=== PATIENT | male | born 1950 | race Caucasian/White ===

== ENCOUNTER 2016-06-22 11:28 | Inpatient (IN) | payer OTHER ==
[2016-06-22] VITALS (36 sets, daily range): BP systolic 95–174; RESP 10–24; TEMP 97.7–98.3; Ht 190.5 cm; Wt 108.9 kg
[~2016-06-22] VITALS: Ht 190.5 cm; Wt 108.9 kg
[2016-06-22] MEDS ORDERED: Atorvastatin 40 MG TAB PO ONE (13:40)
[2016-06-22] MEDS ORDERED: OXYCODONE/APAP 5/325 TAB PO PRN (13:55)
[2016-06-22] MEDS ORDERED: LIDOCAINE 2% 20 ML SUBQ ONE (13:55)
[2016-06-22] MEDS ORDERED: MORPHINE 2 MG/ML SYR IV PRN (13:55)
[2016-06-22] MEDS ORDERED: MORPHINE 2 MG/ML SYR IV ONE (13:55)
[2016-06-22] MEDS ORDERED: TEMAZEPAM 7.5 MG CAP PO PRN (13:55)
[2016-06-22] MEDS ORDERED: MIDAZOLAM 2 MG/2 ML INJ IV ONE (13:55)
[2016-06-22] MEDS ORDERED: TRAMADOL 50 MG TAB PO PRN (13:55)
[2016-06-22] MEDS ORDERED: TEMAZEPAM 15 MG CAP PO PRN (13:55)
[2016-06-22] MEDS ORDERED: NITROGLYCERIN 50 MG/250 ML 250 ML IV PRN (13:55)
[2016-06-22] MEDS ORDERED: SALINE FLUSH 10 ML FLUSH PRN (13:55)
[2016-06-22] MEDS ORDERED: MIDAZOLAM 2 MG/2 ML INJ IV PRN (13:55)
[2016-06-22] MEDS ORDERED: ATROPINE 1 MG/10 ML SYRINGE IV PRN (13:55)
[2016-06-22] MEDS ORDERED: DEXTROSE 5% SALINE 0.45% 1,000 ML IV SCH (13:55)
[2016-06-22] MEDS ORDERED: DOCUSATE SOD 100 MG CAP PO PRN (13:55)
[2016-06-22] MEDS ORDERED: LORAZEPAM 0.5 MG TAB PO PRN (13:55)
[2016-06-22] MEDS: NITROGLYCERIN SL 0.4 MG TAB SL PRN (16:04)
[2016-06-22] MEDS ORDERED: PANTOPRAZOLE 40 MG VIAL IV STA (16:18)
[2016-06-22] MEDS: ONDANSETRON 4 MG VIAL IV PRN ×2 (16:52→23:44)
[2016-06-22] MEDS: PROMETHAZINE 25 MG/ML VIAL IV PRN (20:43)
[2016-06-22] MEDS ORDERED: Carvedilol 3.125 MG TAB PO SCH (21:00)
[2016-06-22] MEDS: Atorvastatin 40 MG TAB PO SCH (21:32)
[2016-06-22] MEDS: SALINE FLUSH 10 ML FLUSH SCH (21:32)
[2016-06-22] MEDS: TICAGRELOR 90 MG TAB PO SCH (21:32)
[2016-06-22] MEDS ORDERED: MEPERIDINE 50 MG/ML ONE (21:52)
[2016-06-22] MEDS ORDERED: FENTANYL 100 MCG/2 ML AMP ONE (21:52)
[2016-06-22] MEDS ORDERED: MIDAZOLAM 2 MG/2 ML INJ ONE (21:52)
[2016-06-22] MEDS ORDERED: MORPHINE 10 MG VIAL ONE (21:52)
[2016-06-22] MEDS ORDERED: LIDOCAINE 2% 20 ML ONE (21:53)
[2016-06-22] MEDS ORDERED: TICAGRELOR 90 MG TAB ONE (21:53)
[2016-06-22] MEDS ORDERED: ASPIRIN 81 MG CHEW TAB ONE (21:53)
[2016-06-22] MEDS ORDERED: Carvedilol 3.125 MG TAB PO ONE (22:40)
[2016-06-23] VITALS (29 sets, daily range): BP systolic 93–154; RESP 12–27; TEMP 97.3–99.4
[2016-06-23] MEDS: NITROGLYCERIN SL 0.4 MG TAB SL PRN (01:34)
[2016-06-23] MEDS ORDERED: NITROGLYCERIN 2% OINT 1 INCH PKT TOPICAL ONE (01:40)
[2016-06-23] MEDS: PROMETHAZINE 25 MG/ML VIAL IV PRN (02:02)
[2016-06-23] MEDS ORDERED: PANTOPRAZOLE 40 MG VIAL IV ONE (04:15)
[2016-06-23] MEDS: ONDANSETRON 4 MG VIAL IV PRN ×2 (04:32→10:43)
[2016-06-23] MEDS: SODIUM CHLORIDE 0.9% FLUSH BAG 500 ML IV SCH (06:11)
[2016-06-23] MEDS: TICAGRELOR 90 MG TAB PO SCH ×2 (07:55→20:27)
[2016-06-23] MEDS: PANTOPRAZOLE 40 MG TAB PO SCH (07:55)
[2016-06-23] MEDS: ASPIRIN 81 MG CHEW TAB PO SCH (07:55)
[2016-06-23] MEDS: SALINE FLUSH 10 ML FLUSH SCH ×2 (07:55→20:29)
[2016-06-23] MEDS: Carvedilol 3.125 MG TAB PO SCH ×2 (07:59→20:27)
[2016-06-23] MEDS: ACETAMINOPHEN 325 MG TAB PO PRN (08:45)
[2016-06-23] MEDS: NITROGLYCERIN 2% OINT 1 INCH PKT TOPICAL SCH ×2 (11:10→17:47)
[2016-06-23] MEDS ORDERED: LISINOPRIL 5 MG TAB PO ONE (17:55)
[2016-06-23] MEDS: Atorvastatin 40 MG TAB PO SCH (20:27)
[2016-06-24] VITALS (20 sets, daily range): BP systolic 93–142; RESP 16–34; TEMP 98.3–99.3
[2016-06-24] MEDS: ACETAMINOPHEN 325 MG TAB PO PRN (00:03)
[2016-06-24] MEDS: SODIUM CHLORIDE 0.9% FLUSH BAG 500 ML IV SCH (05:00)
[2016-06-24] MEDS: PANTOPRAZOLE 40 MG TAB PO SCH (06:19)
[2016-06-24] MEDS ORDERED: MISSING DOSE XX ONE (08:05)
[2016-06-24] MEDS: SALINE FLUSH 10 ML FLUSH SCH ×2 (08:07→19:49)
[2016-06-24] MEDS: ASPIRIN 81 MG CHEW TAB PO SCH (08:07)
[2016-06-24] MEDS: TICAGRELOR 90 MG TAB PO SCH ×2 (08:07→19:49)
[2016-06-24] MEDS: Carvedilol 3.125 MG TAB PO SCH ×2 (08:08→19:50)
[2016-06-24] MEDS: SPIRONOLACTONE 25 MG TAB PO SCH (08:58)
[2016-06-24] MEDS: Atorvastatin 40 MG TAB PO SCH (19:49)
[2016-06-24] MEDS ORDERED: LISINOPRIL 5 MG TAB PO SCH (21:00)
[2016-06-25 04:18] VITALS: BP_SYST 90; RESP 16; TEMP 97.9
[2016-06-25] MEDS: SODIUM CHLORIDE 0.9% FLUSH BAG 500 ML IV SCH (05:43)
[2016-06-25] MEDS: PANTOPRAZOLE 40 MG TAB PO SCH (05:58)
[2016-06-25 07:55] VITALS: BP_SYST 120; RESP 16; TEMP 98.3
[2016-06-25] MEDS: SALINE FLUSH 10 ML FLUSH SCH (08:00)
[2016-06-25] MEDS ORDERED: MISSING DOSE XX ONE (08:25)
[2016-06-25] MEDS: ASPIRIN 81 MG CHEW TAB PO SCH (09:23)
[2016-06-25] MEDS: SPIRONOLACTONE 25 MG TAB PO SCH (09:23)
[2016-06-25] MEDS: TICAGRELOR 90 MG TAB PO SCH (09:23)
[2016-06-25] MEDS: Carvedilol 3.125 MG TAB PO SCH (09:23)
[2016-06-25 11:40] VITALS: BP_SYST 117; RESP 16; TEMP 98
[2016-06-25 13:12] VITALS: BP_SYST 117; RESP 16; TEMP 98
== END 2016-06-25 14:01 | disposition home or self-care (01) | DRG 247 ==
LOC: ER 11:28 → EMR 13:52 → ENPENDDIS 13:52 → CCU 14:09 → 4THE 06-24 17:48
PROVIDERS: ADMIT Internal Medicine Cardiovascular Disease; ATTEND Internal Medicine Cardiovascular Disease
PROC: 027034Z Dilation of Coronary Artery, One Artery with Drug-eluting Intraluminal Device, Percutaneous Approach (ICD-10-PCS; principal; 2016-06-22)
PROC: 02703EZ Dilation of Coronary Artery, One Artery with Two Intraluminal Devices, Percutaneous Approach (ICD-10-PCS; 2016-06-22)
PROC: 4A023N7 Measurement of Cardiac Sampling and Pressure, Left Heart, Percutaneous Approach (ICD-10-PCS; 2016-06-22)
PROC: B2111ZZ Fluoroscopy of Multiple Coronary Arteries using Low Osmolar Contrast (ICD-10-PCS; 2016-06-22)
PROC: B2151ZZ Fluoroscopy of Left Heart using Low Osmolar Contrast (ICD-10-PCS; 2016-06-22)
DX: I21.09 ST elevation (STEMI) myocardial infarction involving other coronary artery of anterior wall (principal); I25.10 Atherosclerotic heart disease of native coronary artery without angina pectoris; Z87.891 Personal history of nicotine dependence; R51 Headache; R94.5 Abnormal results of liver function studies
CPT/HCPCS: 71010; 80048; 80051; 80053; 80061; 82330; 82550; 82553; 82803; 83735; 83880; 84439; 84443; 84484; 85025; 85347; 85610; 93005; 93306; 93458; 94799; 99281